=== PATIENT | male | born 1965 | race Caucasian/White ===

== ENCOUNTER → 2016-11-02 | Outpatient (CLI) | payer OTHER ==
[2016-08-14 11:46] VITALS: BP 127/80
[~2016-11-02] MED LIST: IBUP-1027 PO; MULT-460 PO
--- NOTE | 2016-11-02 15:30 | KCIC ---
PROCEDURE Lumbar radiographs. HISTORY Lumbar fusion July 2016, right-sided muscle spasms, improved pain COMPARISON None available FINDINGS Two views of the lumbar spine are submitted. There has been posterolateral fusion with intact bilateral pedicle screws stabilizing vertical rods at L2-L3, also interbody graft at this level. Lumbar vertebral body stature is mostly maintained, very minimal anterior wedge deformity of L1. There is very mild posterior subluxation of L1 relative to L2. There is mild to moderate degenerative disc disease at T12-L1. IMPRESSION 1. There is intact posterolateral fusion hardware L2-3. Electronically signed by: Sin Azul MD (Nov 02, 2016 15:29:02)
== END | disposition home or self-care (01) ==
LOC: KCIC 14:06
PROVIDERS: ATTEND Neurological Surgery
DX: M51.35 Other intervertebral disc degeneration, thoracolumbar region (principal); S33.110A Subluxation of L1/L2 lumbar vertebra, initial encounter; X58.XXXA Exposure to other specified factors, initial encounter; Y93.89 Activity, other specified; Y92.89 Other specified places as the place of occurrence of the external cause; Y99.8 Other external cause status; Z98.1 Arthrodesis status
CPT/HCPCS: 72100

== ENCOUNTER → 2018-10-11 | Outpatient (CLI) | payer OTHER ==
[2016-08-14 11:46] VITALS: BP 127/80
--- NOTE | 2018-10-11 15:09 | RAD ---
Lumbar spine, 3 views, 10/11/2018: HISTORY: Previous back surgery, pain Comparison is made to a study from 11/02/2016. There has been a previous posterior spinal fusion and instrumentation at L2-3 with bilateral pedicle screws and posterior fixation rods in place. A partially radiopaque disc spacer is present at the narrowed L2-3 disc space. There is moderate marginal spurring at that level. The alignment through this region is anatomic and unchanged. No fracture or subluxation is evident. There are a few other scattered marginal spurs at other portions of the lumbar spine. There are mild degenerative changes involving the facet joints in the lower lumbar spine. IMPRESSION: 1. Stable posterior spinal fusion and instrumentation at L2-3. 2. Mild to moderate scattered degenerative changes. 3. No new abnormality is detected. Electronically signed by: Jim Camarillo MD (10/11/2018 3:06 PM) [facility]
== END | disposition home or self-care (01) ==
LOC: RAD 10:19
PROVIDERS: ATTEND Neurological Surgery
DX: M47.896 Other spondylosis, lumbar region (principal); M46.06 Spinal enthesopathy, lumbar region
CPT/HCPCS: 72100